=== PATIENT | female | born 1995 | race Caucasian/White ===

== ENCOUNTER 2017-05-21 16:24 | Emergency (ER) | payer BC ==
[~2017-05-21] VITALS: Ht 160 cm; Wt 99.0 kg
[~2017-05-21 16:24] MED LIST: Z.0.BCPILL PO
[2017-05-21 16:34] VITALS: BP 145/89; PULSE 99; RESP 16; TEMP 99.3; O2SAT 97
[2017-05-21] MEDS ORDERED: NORE1TAB58 PO (16:47)
[2017-05-21] MEDS ORDERED: KETOROLAC TROMETHAMINE 30 MG/ML (IVP) VIAL IV PUSH ONE (17:00)
--- NOTE | 2017-05-21 17:06 | PD ---
HPI Chief Complaint: Abdominal Pain Time Seen by Provider: 16:44 Travel History International Travel<30 days: No Contact w/Intl Traveler<30days: No Traveled to known affect area: No History of Present Illness HPI This is a 21 year old female who presents to the emergency department with right lower quadrant abdominal pain is been going on for 3-4 days, constant, worse with walking and moving, improved with rest associated with some nausea after eating. She denies any fevers or chills. She denies any diarrhea or constipation. She denies any vaginal discharge. She's had one sexual partner in the past 6 months. PFSH Past Medical History Cancer: No Diabetes: No Endocrine: No Genitourinary: No Hepatitis: No Hiatal Hernia: No Immune Disorder: No Neurologic: No Psychiatric: No Reproductive: Yes (OVARIAN CYSTS) Respiratory: No Thyroid Disease: No ?: Not LMP: CONTROL Past Surgical History Abdominal Surgery: No AICD: No Cardiac Surgery: No Ear Surgery: No Endocrine Surgery: No Eye Surgery: No Genitourinary Surgery: No Gynecologic Surgery: No Joint Replacement: No Oral Surgery: No Pacemaker: No Thoracic Surgery: No Social History Alcohol Use: No Tobacco Use: No Substance Use: No Allergies-Medications (Allergen,Severity, Reaction): Coded Allergies: adhesive (Unverified Allergy, Intermediate, RASH, 05/21/17) penicillin G (Unverified Allergy, Intermediate, RASH,GI UPSET, 05/21/17) latex (Verified Allergy, Unknown, 05/21/17) Reported Meds & Prescriptions Reported Meds & Active Scripts Active Reported Loestrin Fe 1.5/30 (Norethindrone-Ethinyl Estradiol-Fe) 1.5-30 Mg-Mcg Tab 1 Tab PO DAILY Review of Systems Except as stated in HPI: all other systems reviewed are Neg Physical Exam Narrative GENERAL:Well appearing, no acute distress SKIN: Focused skin assessment warm and dry. HEAD: Atraumatic. Normocephalic. EYES: Pupils equal and round. No injection or drainage. ENT: Moist mucous membranes NECK: Trachea midline. CARDIOVASCULAR: Regular rate and rhythm. No murmur appreciated. RESPIRATORY: Clear to auscultation. Breath sounds equal bilaterally. GASTROINTESTINAL: Abdomen soft, tender to palpation in the right upper quadrant and right lower quadrants with no rebound or guarding. SLEEVE SEWER: No cervical motion or adnexal tenderness, no vaginal discharge MUSCULOSKELETAL: No obvious deformities. NEUROLOGICAL: Awake and alert. No obvious cranial nerve deficits. Moving all extremities. PSYCHIATRIC: Appropriate mood and affect; insight and judgment normal. Data Data Last Documented VS Vital Signs Date Time Temp Pulse Resp B/P (MAP) Pulse Ox O2 Delivery O2 Flow Rate FiO2 05/21/17 16:34 99.3 99 16 145/89 (107) 97 Orders Orders Complete Blood Count With Diff (05/21/17 16:52) Comprehensive Metabolic Panel (05/21/17 16:52) Lipase (05/21/17 16:52) ^ Insert Iv (05/21/17 16:52) Urinalysis - C+S If Indicated (05/21/17 16:52) Ed Urine Pregnancytest Poc (05/21/17 16:52) Ketorolac Inj (Toradol Inj) (05/21/17 17:00) Us Abdomen Gallbladder (05/21/17 ) Labs Laboratory Tests Test 05/21/17 16:55 White Blood Count 11.1 TH/MM3 Red Blood Count 5.46 MIL/MM3 Hemoglobin 13.9 GM/DL Hematocrit 40.4 % Mean Corpuscular Volume 74.1 FL Mean Corpuscular Hemoglobin 25.5 PG Mean Corpuscular Hemoglobin Concent 34.4 % Red Cell Distribution Width 13.2 % Platelet Count 335 TH/MM3 Mean Platelet Volume 8.6 FL Neutrophils (%) (Auto) 55.8 % Lymphocytes (%) (Auto) 36.3 % Monocytes (%) (Auto) 5.8 % Eosinophils (%) (Auto) 0.7 % Basophils (%) (Auto) 1.4 % Neutrophils # (Auto) 6.2 TH/MM3 Lymphocytes # (Auto) 4.0 TH/MM3 Monocytes # (Auto) 0.6 TH/MM3 Eosinophils # (Auto) 0.1 TH/MM3 Basophils # (Auto) 0.2 TH/MM3 CBC Comment DIFF FINAL Differential Comment Urine Collection Type CLEAN CATCH Urine Color YELLOW Urine Turbidity SLIGHT Urine pH 6.0 Urine Specific [place] 1.018 Urine Protein NEG mg/dL Urine Glucose (UA) NEG mg/dL Urine Ketones NEG mg/dL Urine Occult Blood NEG Urine Nitrite NEG Urine Bilirubin NEG Urine Leukocyte Esterase NEG Urine Squamous Epithelial Cells > 8 /hpf Urine Amorphous Sediment MOD Microscopic Urinalysis Comment CULT NOT INDICATED Urine Collection Time 1635 Blood Urea Nitrogen 10 MG/DL Creatinine 0.73 MG/DL Random Glucose 99 MG/DL Total Protein 7.5 GM/DL Albumin 3.5 GM/DL Calcium Level 9.4 MG/DL Alkaline Phosphatase 73 U/L Aspartate Amino Transf (AST/SGOT) 24 U/L Alanine Aminotransferase (ALT/SGPT) 16 U/L Total Bilirubin 0.2 MG/DL Sodium Level 140 MEQ/L Potassium Level 3.8 MEQ/L Chloride Level 106 MEQ/L Carbon Dioxide Level 26.3 MEQ/L Anion Gap 8 MEQ/L Estimat Glomerular Filtration Rate 100 ML/MIN Lipase 186 U/L [facility] Medical Decision Making Medical Screen Exam Complete: Yes Emergency Medical Condition: Yes Interpretation(s) temperature is 99.3, mild tachycardia Mild leukocytosis Electrolytes are reassuring Lipase is normal Biliary labs are normal Urinalysis is negative for infection test is negative Last 24 hours Impressions Gall Bladder Ultrasound 05/21/17 0000 Signed Impressions: Service Date/Time: Sunday, May 21, 2017 17:50 - CONCLUSION: 1. The gallbladder is contracted but otherwise appears unremarkable with no evidence of cholelithiasis. 2. The remainder of the study is unremarkable. Nick Greer MD Differential Diagnosis Cholelithiasis, cholecystitis, gastritis, appendicitis, ovarian cyst rupture Narrative Course This is a 21-year-old female who presents to the emergency department with right sided abdominal pain that's been going on for 4 days. She does have some postprandial nausea. She denies any vomiting or fever. She has a very benign exam. Labs are reassuring, urinalysis is negative and pelvic exam is benign. An ultrasound of her gallbladder was reassuring. I doubt the patient has appendicitis given her well appearance and absence of fever and vomiting. I did ask her to return to the emergency department if her symptoms worsen at which time we consider CT imaging. I think patient might benefit from a trial of antacid and the case that this may be gastritis given her postprandial symptoms. Otherwise I think she is appropriate for outpatient follow-up Diagnosis Primary Impression: Abdominal pain Qualified Codes: R10.31 - Right lower quadrant pain Patient Instructions: General Instructions Additional Instructions: If you develop severe or worsening abdominal pain, fever>100.4, persistent vomiting or inability to eat or drink return to the emergency department immediately. Follow up with your primary care physician in 1-2 days for a check-up. Med/Other Pt SpecificInfo: Prescription(s) given Scripts Ranitidine (Ranitidine) 150 Mg Tab 150 MG PO BID for Heartburn Management, #60 TAB 0 Refills Prov: Rose Tapia MD 05/21/17 Disposition: 01 DISCHARGE HOME Condition: Stable Rose Tapia MD May 21, 2017 17:06
[2017-05-21 17:10] LABS: AUTOMATED NEUTROPHIL # 6.2 TH/MM3 (1.8-7.7); BASOPHIL # 0.2 TH/MM3 (0-0.2); BASOPHIL % 1.4 % (0.0-2.0); EOSINOPHIL # 0.1 TH/MM3 (0-0.4); EOSINOPHIL % 0.7 % (0.0-4.0); HEMATOCRIT 40.4 % (35.0-46.0); HEMO FLAGS DIFF FINAL; LYMPH % 36.3 % (9.0-44.0); MEAN CELL VOLUME 74.1 FL (80.0-100.0); MEAN CORPUSCULAR HEMOGLOBIN 25.5 PG (27.0-34.0); MEAN CORPUSCULAR HGB CONC 34.4 % (32.0-36.0); MONO % 5.8 % (0.0-8.0); NEUT % 55.8 % (16.0-70.0); PLATELET COUNT 335 TH/MM3 (150-450); RED BLOOD COUNT 5.46 MIL/MM3 (4.00-5.30); RED CELL DISTRIBUTION WIDTH 13.2 % (11.6-17.2); WHITE BLOOD COUNT 11.1 TH/MM3 (4.0-11.0)
[2017-05-21 17:16] LABS: BLOOD, URINE NEG (NEG); GLUCOSE,URINE NEG (NEG); KETONE, URINE NEG (NEG); NITRITE,URINE NEG (NEG)
[2017-05-21 17:20] LABS: CHLORIDE 106 MEQ/L (98-107); POTASSIUM 3.8 MEQ/L (3.5-5.1); SODIUM (NA) 140 MEQ/L (136-145)
[2017-05-21 17:25] LABS: ANION GAP 8 MEQ/L (5-15); BICARBONATE 26.3 MEQ/L (21.0-32.0); BLOOD UREA NITROGEN 10 MG/DL (7-18)
[2017-05-21 17:28] LABS: ALT (GPT) 16 U/L (10-53); AST (GOT) 24 U/L (15-37); GLOMERULAR FILTRATION RATE 100 ML/MIN (>89)
[2017-05-21 17:29] LABS: TOTAL BILIRUBIN ADULT 0.2 MG/DL (0.2-1.0)
[2017-05-21 17:31] LABS: ALKALINE PHOSPHATASE 73 U/L (45-117)
[2017-05-21 17:36] LABS: METHOD OF COLLECTION CLEAN CATCH; URINE COLOR YELLOW (YELLW/STRAW)
[2017-05-21 17:37] LABS: COMMENT (UR) CULT NOT INDICATED; COMMENT2 (UR) MUCOUS PRESENT; CULTURE IF INDICATED CULT NOT INDICATED; SQUAMOUS EPITHELIAL CELL URINE > 8 /hpf (0-5)
--- NOTE | 2017-05-21 18:25 | RADRPT ---
EXAM DATE/TIME: 05/21/2017 17:50 [facility] COMPARISON: No previous studies available for comparison. INDICATIONS : Abdomen pain. MEDICAL HISTORY : Ovarian cysts. Abdomen pain. IBS. SURGICAL HISTORY : Colonoscopy. ENCOUNTER: Initial ACUITY: 4-6 days PAIN SCORE: 4/10 LOCATION: Right upper quadrant MEASUREMENTS: LIVER: 14.1 cm length COMMON DUCT: 4 mm RIGHT KIDNEY: 10.8 x 5.0 x 4.7 cm FINDINGS: LIVER: Normal in size and shape without focal lesion or ductal dilatation. COMMON DUCT: No intraluminal mass or stone visualized. GALLBLADDER: The gallbladder is contracted but otherwise appears unremarkable with no evidence of cholelithiasis. PANCREAS: Well-visualized are evaluated. RIGHT KIDNEY: No evidence of hydronephrosis, stone, or mass. Imaging was performed in the right lower quadrant which demonstrated no focal abnormality. CONCLUSION: 1. The gallbladder is contracted but otherwise appears unremarkable with no evidence of cholelithiasi s. 2. The remainder of the study is unremarkable. Nick Greer MD on May 21, 2017 at 18:18 Board Certified Radiologist. This report was verified electronically.
[2017-05-21] MEDS ORDERED: RANI150T PO (18:35)
== END 2017-05-21 18:46 | disposition home or self-care (01) ==
LOC: PHED 16:24
DX: R10.31 Right lower quadrant pain (principal)
CPT/HCPCS: 76705; 80053; 81001; 83690; 84703; 85025; 96374; 99285; J1885